=== PATIENT | female | born 1980 | race Caucasian/White ===

== ENCOUNTER 2017-11-22 21:04 | Emergency (ER) | payer SELFPAY ==
[2017-11-22] MEDS ORDERED: IBUPROFEN 600 MG TAB PO (22:30)
== END 2017-11-22 22:27 | disposition left against medical advice (07) ==
LOC: FTE 22:27
DX: S60.221A Contusion of right hand, initial encounter (principal); V89.2XXA Person injured in unspecified motor-vehicle accident, traffic, initial encounter
CPT/HCPCS: 99282